=== PATIENT | male | born 1990 | race Caucasian/White ===

== ENCOUNTER 2018-12-26 15:11 | Emergency (ER) | payer SELFPAY ==
[~2018-12-26] VITALS: Ht 177.8 cm; Wt 81.7 kg
[~2018-12-26 15:11] MED LIST: ACET500 PO; ALBU90OI61 INH; BENZ100A PO; CLIN300 PO; ERYT.5TO OS; HYDACE5 PO; IBUP400 PO; NAPR500 PO; TETR250 PO
[2018-12-26] MEDS ORDERED: EAR WAX DROPS15 ML RIGHTEAR (16:21)
== END 2018-12-26 16:23 | disposition home or self-care (01) ==
LOC: ER 15:11
DX: H61.21 Impacted cerumen, right ear (principal); J45.909 Unspecified asthma, uncomplicated; Z79.899 Other long term (current) drug therapy
CPT/HCPCS: 69209; 99282-25